=== PATIENT | female | born 1955 | race Caucasian/White ===

== ENCOUNTER 2016-11-04 19:43 | Emergency (ER) | payer OTHER ==
[~2016-11-04] VITALS: Ht 162.6 cm; Wt 77.1 kg
[2016-11-04 19:51] VITALS: BP 113/59; PULSE 74; RESP 14; TEMP 97.9; O2SAT 98
--- NOTE | 2016-11-04 20:33 | NUR ---
Patient to ER bed 6 to gown for evaluation. Side rails up. Report given to SONG RN.
--- NOTE | 2016-11-04 20:39 | NUR ---
PT came in from home, A&Ox4, c/o cutting her left middle finger while cutting an avocado. Pt reports feeling numbness and tingling and pain 3/10 to left middle finger. Pt denies Chest pain or SOB and other distress. Safety maintained. Continue to monitor
--- NOTE | 2016-11-04 20:40 | NUR ---
MARQUIS Carcamo at bedside examining patient.
[2016-11-04] MEDS ORDERED: DIPH-TET-PERTUS Vaccine 0.5 ML VIAL (ADACEL) IM ONE (21:45)
[2016-11-04 22:26] VITALS: BP 110/59; PULSE 74; RESP 14; TEMP 97.9; O2SAT 98
--- NOTE | 2016-11-04 22:26 | NUR ---
Patient given written and verbal discharge instructions and verbalizes understanding. ER MD discussed with patient the results and treatment provided. Patient in stable condition. ID arm band removed. Rx of Keflex given. Patient educated on pain management and to follow up with PMD. Pain Scale 07/30. Opportunity for questions provided and answered.
== END 2016-11-04 22:26 | disposition home or self-care (01) ==
LOC: SED 19:43
DX: S61.213A Laceration without foreign body of left middle finger without damage to nail, initial encounter (principal); Z88.2 Allergy status to sulfonamides; W26.0XXA Contact with knife, initial encounter; Y93.89 Activity, other specified; Y92.89 Other specified places as the place of occurrence of the external cause; Y99.8 Other external cause status
CPT/HCPCS: 90715; 99283

== ENCOUNTER 2022-06-07 06:48 | Day surgery (SDC) | payer OTHER ==
[~2022-06-07] VITALS: Ht 160 cm; Wt 76.2 kg
[2022-06-07] MEDS ORDERED: CEFAZOLIN SOD 1 GM in D5W 50 ML IV ONE (07:00)
[2022-06-07] MEDS ORDERED: fentaNYL CITRATE/PF 100 MCG/2 ML AMP IVP ONE (10:27)
[2022-06-07] MEDS ORDERED: BUPIVACAINE /EPINEPHRINE/PF 0.25% 30 ML VIAL INJ ONE (10:27)
[2022-06-07] MEDS ORDERED: ONDANSETRON HCL 4 MG/2 ML VIAL IVP ONE (10:27)
[2022-06-07] MEDS ORDERED: LR 1,000 ML IV.SOLN IV ONE (10:27)
[2022-06-07] MEDS ORDERED: SEVOFLURANE 15 MIN GAS INH ONE (10:27)
[2022-06-07] MEDS ORDERED: DEXAMETHASONE SOD PHOSPHATE 4 MG/ML VIAL IVP ONE (10:27)
[2022-06-07] MEDS ORDERED: MIDAZOLAM HCL 5 MG/5 ML VIAL IVP ONE (10:27)
[2022-06-07] MEDS ORDERED: PROPOFOL 200MG/ 20ML VIAL (DIPRIVAN) IV ONE (10:27)
[2022-06-07] MEDS ORDERED: GLYCOPYRROLATE 0.2 MG/ML VIAL IJ ONE (10:27)
[2022-06-07] MEDS ORDERED: NS IRRIG SOLN 1000 ML IR ONE (10:27)
[2022-06-07] MEDS ORDERED: MEPERIDINE HCL/PF 25 MG/ML DISP.SYRIN IVP PRN (11:15)
[2022-06-07] MEDS ORDERED: hydrALAZINE HCL 20 MG/ML VIAL IVP PRN (11:15)
[2022-06-07] MEDS ORDERED: HYDROmorphone 1 MG/ML INJ. CARTRIDGE IVP PRN ×2 (11:15)
[2022-06-07] MEDS ORDERED: MIDAZOLAM HCL 2 MG/2 ML VIAL (VERSED) IVP PRN (11:15)
[2022-06-07] MEDS ORDERED: METOCLOPRAMIDE HCL 10 MG/2 ML VIAL IVP PRN (11:15)
[2022-06-07] MEDS ORDERED: LABETALOL 100 MG/ 20ML VIAL IVP PRN (11:15)
[2022-06-07] MEDS ORDERED: LR 1,000 ML IV SCH (11:15)
[2022-06-07] MEDS ORDERED: HYDROcodone/ACETAMIN 5-325 MG TAB (NORCO/ VICODIN) PO PRN ×2 (12:00)
[2022-06-07] MEDS ORDERED: D5/0.45 NS 1,000 ML IV SCH (12:00)
[2022-06-07] MEDS ORDERED: HYDROmorphone 1 MG/ML INJ. CARTRIDGE ONE (12:34)
[2022-06-08 09:52] VITALS: BP_SYST 121
== END 2022-06-07 15:35 | disposition home or self-care (01) ==
LOC: SDS 06:48 → SMU 06:49 → SDS 15:35
PROVIDERS: ATTEND Colon & Rectal Surgery
DX: C50.911 Malignant neoplasm of unspecified site of right female breast (principal); E03.9 Hypothyroidism, unspecified; Z88.1 Allergy status to other antibiotic agents; K21.9 Gastro-esophageal reflux disease without esophagitis; E78.5 Hyperlipidemia, unspecified; Z20.822 Contact with and (suspected) exposure to COVID-19; Z79.899 Other long term (current) drug therapy
CPT/HCPCS: 36415 ×2; 38792; 19281; 19301; 38900; 38525; 76098; 88305; 88307; 88309; 88329; 88333; 88342; 87426; U0003; A9541; J3490 ×2; J0690; J1100; J2250; J2405; J2704; J3010; J1170; J7060; J7120; 78195